=== PATIENT | male | born 1995 | race Caucasian/White ===

== ENCOUNTER 2017-05-22 00:50 | Emergency (ER) ==
[2017-05-22] MEDS ORDERED: SODIUM CHLORIDE 1,000 ML IV STA ×2 (01:01→01:02)
[2017-05-22] MEDS ORDERED: SODIUM CHLORIDE 500 ML IV STA (01:02)
[2017-05-22 01:03] VITALS: TEMP 98.1; BMI 39.4
[2017-05-22] MEDS ORDERED: LOMOTIL PO STA (01:03)
[2017-05-22] MEDS ORDERED: ZOFRAN 4 MG/2 ML IVP STA (01:03)
--- NOTE | 2017-05-22 01:40 | CT ---
EXAM: CT abdomen pelvis without intravenous contrast 05/22/2017. Sagittal and coronal reformatted i mages obtained HISTORY: Diarrhea COMPARISON: 03/07/2011 FINDINGS: The liver and gallbladder show no acute abnormality. The adrenal glands and kidneys show no acute abnormality. No hydronephrosis. The spleen and pancreas show no acute abnormality. There is no bowel obstruction. Normal appendix. Unremarkable urinary bladder. No free air or free fluid. Air-fluid levels throughout the colon suggestive of diarrhea. IMPRESSION: 1. No urinary or bowel obstruction and normal appendix. 2. Air-fluid levels throughout the colon suggestive of diarrhea.
[2017-05-22 02:12] LABS: BASOPHILS # (AUTO) 0.1 K/uL (0-0.2); BASOPHILS % (AUTO) 0.5 % (0.0-3.0); EOSINOPHILS # (AUTO) 0.1 K/ul (0.0-0.7); EOSINOPHILS % (AUTO) 1.3 % (0.0-7.0); HEMATOCRIT 44.5 % (42.0-52.0); HEMOGLOBIN 15.4 g/dl (14.0-18.0); IMMATURE GRANULOCYTE % (AUTO) 0.3 % (0.0-5.0); LYMPHOCYTES % (AUTO) 21.1 (10.0-50.0); MEAN CORPUSCULAR HEMOGLOBIN 27.9 pg (27.0-31.0); MEAN CORPUSCULAR HGB CONC 34.6 (31.8-35.4); MEAN CORPUSCULAR VOLUME 80.6 fl (80.0-94.0); MONOCYTES # (AUTO) 1.4 K/uL (0.4-2.0); MONOCYTES % (AUTO) 15.4 (0-10); NEUTROPHILS # (AUTO) 5.7 K/ul (2.0-6.9); NEUTROPHILS % (AUTO) 61.4; PLATELET COUNT 271 10^3/uL (140-440); RED BLOOD COUNT 5.52 10^6/ul (4.70-6.10); WHITE BLOOD COUNT 9.31 K/ul (4.2-10.2)
[2017-05-22 02:34] LABS: ALBUMIN 4.1 g/dL (3.4-5.0); ALBUMIN/GLOBULIN RATIO 1.11; ANION GAP 15.3; BILIRUBIN,TOTAL 0.78 mg/dL (0.00-1.20); BUN/CREATININE RATIO 7.69; CALCIUM 9.6 mg/dL (8.2-10.2); CREATININE 1.3 mg/dL (0.60-1.10); POTASSIUM 3.3 mmol/L (3.5-5.1); TOTAL PROTEIN 7.8 g/dL (6.4-8.2)
[2017-05-22 02:35] LABS: FLU INTERNAL QC INTERNAL QC VALID; RAPID FLU A NEGATIVE (NEGATIVE); RAPID FLU B NEGATIVE (NEGATIVE)
[2017-05-22] MEDS ORDERED: K-DUR PO STA (03:40)
[2017-05-22 03:50] LABS: BILIRUBIN,URINE Negative (NEGATIVE); KETONES,URINE Negative (NEGATIVE); LEUKOCYTE ESTERASE ,URINE Negative (NEGATIVE); NITRITE,URINE Negative (NEGATIVE); PH,URINE 5.5 (5-9); PROTEIN,URINE Negative (NEGATIVE); URINE, BLOOD 1+ (NEGATIVE)
[2017-05-22 03:53] LABS: ADD URINE MICROSCOPIC YES
--- NOTE | 2017-05-22 05:37 | ED.PDOC ---
General ED Provider: Dr. AMINAH CARDENAS-ER Chief Complaint: Nausea/Vomiting Stated Complaint: hes had persistent diarrrhea Time Seen by Physician: 00:55 Mode of Arrival: Walk-In Information Source: Patient, Family Exam Limitations: No limitations Primary Care Provider: AURE GAN Nursing and Triage Documentation Reviewed and Agree: Yes GI Complaint Exam - Vomiting/Diarrhea Complaint/Exam Onset/Duration: 3 days Symptoms Are: Still present Initial Severity: Mild Current Severity: Moderate Character of Diarrhea: Reports: Watery Aggravating: Reports: None Alleviating: Reports: None Associated Signs and Symptoms: Reports: Cramping Non-GI Risk Factors: Reports: None Surgical Obstruction Risk Factors: Reports: None Related Surgical History: Reports: None Abdominal Findings: Present: None Kussmaul Respirations Present: No Differential Diagnoses: Viral Gastroenteritis Review of Systems - Review Of Systems Constitutional: Reports: No symptoms Eyes: Reports: No symptoms Ears, Nose, Mouth, Throat: Reports: No symptoms Respiratory: Reports: No symptoms Cardiac: Reports: No symptoms GI: Reports: Diarrhea : Reports: No symptoms Musculoskeletal: Reports: No symptoms Skin: Reports: No symptoms Neurological: Reports: No symptoms Endocrine: Reports: No symptoms Hematologic/Lymphatic: Reports: No symptoms All Other Systems: Reviewed and Negative Past Medical History - Past Medical History Previously Healthy: Yes Endocrine: Reports: Unknown Cardiovascular: Reports: Unknown Respiratory: Reports: Unknown Hematological: Reports: Unknown Gastrointestinal: Reports: Unknown Genitourinary: Reports: Unknown Neuro/Psych: Reports: Unknown Musculoskeletal: Reports: Unknown Cancer: Reports: Unknown - Surgical History General Surgical History: Reports: Unknown - Family History Family History: Reports: Unknown - Social History Smoking Status: Never smoker Hx Substance Use: No Alcohol Screening: None - Immunizations Tetanus Shot up to Date: Yes Physical Exam - Physical Exam Appearance: Well-appearing, No pain distress, Well-nourished Eyes: KHADIJAH ENT: Ears normal, Nose normal, Oropharynx normal Neck: Supple Respiratory: Airway patent Cardiovascular: RRR, Pulses normal, No rub, No murmur GI/: Soft, Nontender, No masses, Bowel sounds normal, No Organomegaly Musculoskeletal: Normal strength, ROM intact, No edema, No calf tenderness Skin: Warm, Dry, Normal color Neurological: Sensation intact, Motor intact, Reflexes intact, Cranial nerves intact, Alert, Oriented Psychiatric: Affect appropriate, Mood appropriate Interpretation - Radiology Interpretation Radiology Interpretation By: ED Physician Radiology Results: Negative Exam Interpreted: CT Scan Re-Evaluation - Re-Evaluation Time of Re-Evaluation: 05:37 Status: Improved Vital Signs Stable: Yes Pain Level: 0 Appearance: NAD Lungs: Clear Skin: Warm and Dry Neuro: Alert and Oriented X3 CV: RRR Critical Care Note - Critical Care Note Total Time (mins): 0 Course - Course Hematology/Chemistry: 05/22/17 02:09 05/22/17 02:09 Orders, Labs, Meds: Lab Review 05/22/17 05/22/17 05/22/17 01:50 02:09 02:09 WBC 9.31 RBC 5.52 Hgb 15.4 Hct 44.5 MCV 80.6 MCH 27.9 MCHC 34.6 RDW Coeff of [place] 13.0 Plt Count 271 Immature Gran % (Auto) 0.3 Neut % (Auto) 61.4 Lymph % (Auto) 21.1 [place] % (Auto) 15.4 H Eos % (Auto) 1.3 Baso % (Auto) 0.5 Immature Gran # (Auto) 0.0 Neut # 5.7 Lymph # 2.0 [place] # 1.4 Eos # 0.1 Baso # 0.1 Sodium 138 Potassium 3.3 L Chloride 103 Carbon Dioxide 23 Anion Gap 15.3 BUN 10 Creatinine 1.30 H Estimated GFR (MDRD) 70.00 BUN/Creatinine Ratio 7.69 Glucose 82 Calcium 9.6 Total Bilirubin 0.78 AST 27 ALT 20 Alkaline Phosphatase 70 Total Protein 7.8 Albumin 4.1 Globulin 3.7 Albumin/Globulin Ratio 1.11 Amylase 33 Lipase 17 Urine Color Urine Clarity Urine pH Ur Specific [place] Urine Protein Urine Glucose (UA) Urine Ketones Urine Blood Urine Nitrite Urine Bilirubin Urine Urobilinogen Ur Leukocyte Esterase Urine Microscopic RBC Ur Squamous Epith Cells Influenza A (Rapid) Negative Influenza B (Rapid) Negative 05/22/17 03:35 WBC RBC Hgb Hct MCV MCH MCHC RDW Coeff of [place] Plt Count Immature Gran % (Auto) Neut % (Auto) Lymph % (Auto) [place] % (Auto) Eos % (Auto) Baso % (Auto) Immature Gran # (Auto) Neut # Lymph # [place] # Eos # Baso # Sodium Potassium Chloride Carbon Dioxide Anion Gap BUN Creatinine Estimated GFR (MDRD) BUN/Creatinine Ratio Glucose Calcium Total Bilirubin AST ALT Alkaline Phosphatase Total Protein Albumin Globulin Albumin/Globulin Ratio Amylase Lipase Urine Color Yellow Urine Clarity Clear Urine pH 5.5 Ur Specific [place] 1.015 Urine Protein Negative Urine Glucose (UA) Negative Urine Ketones Negative Urine Blood 1+ Urine Nitrite Negative Urine Bilirubin Negative Urine Urobilinogen 0.2 Ur Leukocyte Esterase Negative Urine Microscopic RBC 0-2 Ur Squamous Epith Cells Not present Influenza A (Rapid) Influenza B (Rapid) Orders Category Date Time Status C-DIFF MONITORING (NURSING) BID CARE 05/22/17 01:04 Active ED IV/MEDIPORT/POWERPORT .ONCE EMERGENCY 05/22/17 01:01 Active AMYLASE Stat LAB 05/22/17 02:09 Completed CBC W/ AUTO DIFF Stat LAB 05/22/17 02:09 Completed COMPREHENSIVE METABOLIC PANEL Stat LAB 05/22/17 02:09 Completed LIPASE Stat LAB 05/22/17 02:09 Completed MOLECULAR GROUP A STREP Stat LAB 05/22/17 01:50 Results RAPID FLU A/B Stat LAB 05/22/17 01:50 Completed STOOL CULTURE Stat LAB 05/22/17 01:50 Results STREP SCREEN Stat LAB 05/22/17 01:50 Results URINALYSIS C & S IF INDICATED Stat LAB 05/22/17 03:35 Completed c-diff [C. DIFFICILE] Routine LAB 05/22/17 01:50 Received 0.9 % Sodium Chloride [Saline Flush] MEDS 05/22/17 01:01 Ordered 1 syr IVF PRN PRN Diphenoxylate HCl/Atropine [Lomotil] MEDS 05/22/17 01:03 Discontinued 1 tab PO ONCE STA Ondansetron HCl/Pf [Zofran 4 mg/2 ml] MEDS 05/22/17 01:03 Discontinued 4 mg IVP ONCE STA Potassium Chloride [K-Dur] MEDS 05/22/17 03:40 Discontinued 40 meq PO ONCE STA Sodium Chloride 0.9% [Sodium Chloride] 1,000 ml MEDS 05/22/17 01:01 Discontinued IV BOLUS Sodium Chloride 0.9% [Sodium Chloride] 1,000 ml MEDS 05/22/17 01:02 Discontinued IV BOLUS Sodium Chloride 0.9% [Sodium Chloride] 500 ml MEDS 05/22/17 01:[address] ABDOMEN/PELVIS WO CONTRAST Stat RADS 05/22/17 01:03 Completed Medications Generic Name Dose Route Start Last Admin Trade Name Freq PRN Reason Stop Dose Admin Sodium Chloride 1 syr 05/22/17 01:01 05/22/17 02:05 Saline Flush IVF 1 syr PRN PRN Administration To flush IV Discontinued Medications Generic Name Dose Route Start Last Admin Trade Name Deo PRN Reason Stop Dose Admin Diphenoxylate HCl/Atropine 1 tab 05/22/17 01:03 05/22/17 02:01 Lomotil PO 05/22/17 01:04 1 tab ONCE STA Administration Sodium Chloride 1,000 mls @ 1,000 mls/hr 05/22/17 01:02 05/22/17 02:08 Sodium Chloride IV 05/22/17 02:01 1,000 mls/hr BOLUS STA Administration Sodium Chloride 500 mls @ 500 mls/hr 05/22/17 01:02 05/22/17 04:20 Sodium Chloride IV 05/22/17 02:01 500 mls/hr BOLUS STA Administration Sodium Chloride 1,000 mls @ 1,000 mls/hr 05/22/17 01:01 05/22/17 03:12 Sodium Chloride IV 05/22/17 02:00 1,000 mls/hr BOLUS STA Administration Ondansetron HCl 4 mg 05/22/17 01:03 05/22/17 02:10 Zofran 4 Mg/2 Ml IVP 05/22/17 01:04 4 mg ONCE STA Administration Potassium Chloride 40 meq 05/22/17 03:40 05/22/17 04:02 K-Dur PO 05/22/17 03:41 40 meq ONCE STA Administration Vital Signs: Temp Pulse Resp BP Pulse Ox 05/22/17 00:52 98.1 F 112 H 20 139/75 96 Departure - Departure Time of Disposition: 05:37 Disposition: HOME SELF-CARE Discharge Problem: Enteritis Instructions: Enteritis (ED) Condition: Good Pt referred to PMD for follow-up: Yes Additional Instructions: it is very important for you to avoid all dairy products for the next 3 days(no cheese butter ice cream, milk etc)--lomotil q 8hrs prn #6--flagyl 250mg tid x 7days--return if not better in 72hrs Allergies/Adverse Reactions: Allergies lamotrigine Adverse Reaction (Verified 05/22/17 01:03) Home Medications: Ambulatory Orders 1 [No Reported Medications] 12/19/13 Disposition Discussed With: Patient, Family
[2017-05-22 05:44] VITALS: BP 133/78
== END 2017-05-22 05:52 | disposition home or self-care (01) ==
LOC: ED 00:50
DX: K52.9 Noninfective gastroenteritis and colitis, unspecified (principal)
CPT/HCPCS: 36415; 80053; 81001; 82150; 83690; 85025; 87015; 87045; 87493; 87651; 87804; 87880; 87899; 96361; 96374; 99283